=== PATIENT | female | born 1995 | race Hispanic/Latino ===

== ENCOUNTER 2024-04-12 14:27 | Observation (INO) | payer OTHER ==
[2024-04-12] MEDS ORDERED: ONDANSETRON 4 MG/2 ML VIAL ONE (15:28)
[2024-04-12] MEDS ORDERED: FAMOTIDINE 20 MG/2 ML VIAL IV ONE (15:28)
[2024-04-12] MEDS ORDERED: NA CHLORIDE 0.9% 1,000 ML ONE (15:29)
[2024-04-12 15:32] LABS: Absolute Eosinophils 0.1 K/uL (0-0.5); Absolute Lymphocytes (CBC) 1.4 K/uL (0.7-4.9); Absolute Monocytes 0.4 K/uL (0.1-1.3); Basophils % 0.5 % (0-1.3); Eosinophils % 1.8 % (0-4.4); Hematocrit 31.6 % (36.0-45.0); Hemoglobin 10.8 g/dL (12.0-15.0); Lymphocytes % 23.9 % (15.3-44.8); MCH 34.1 pg (27.0-35.0); MCHC 34.3 g/dL (32.0-36.0); MCV 99.5 fL (80-100); MPV 6.4 fL (7.6-11.3); Monocytes % 6.9 % (3.3-12.3); Neutrophils % 66.9 % (41.7-73.7); Nucleated Red Blood Cells % 0.1 % (0-0); Platelets 444 thou/uL (152-406); RBC Red Blood Cell Count 3.18 M/uL (3.86-4.86); Red Cell Distribution Width 16.7 % (12.1-15.2)
--- NOTE | 2024-04-12 15:44 | RAD REPORT ---
EXAM: Right upper quadrant ultrasound. CLINICAL HISTORY: Abdominal pain COMPARISON: None FINDINGS: A gallstone is not seen. Gallbladder wall 3.5 mm. [id number] amount of sludge Biliary tree normal caliber IMPRESSION: Mild gallbladder wall thickening may indicate acalculous cholecystitis or be secondary to hypoalbumin emia. Small to moderate amount of sludge within the gallbladder
[2024-04-12 15:46] LABS: Albumin 3.2 g/dL (3.4-5.0); Albumin/Globulin Ratio 0.8 (1.1-1.8); Anion Gap 8.6 mEq/L (5.0-15.0); Bilirubin Total 0.5 mg/dL (0.2-1.0); Globulin 3.9 g/dL (2.3-3.5); Potassium 3.6 mEq/L (3.5-5.1); Protein, Total 7.1 g/dL (6.4-8.2)
--- NOTE | 2024-04-12 16:51 | EDPHYS ---
Physician Documentation [facility] Name: Jesica Olivas Age: 28 yrs Sex: Female : 1995 Arrival Date: 04/12/2024 Time: 14:27 Bed 18 Private MD: ED Physician Efren Thomas HPI: 04/12 16:39 This 28 yrs old Female presents to ER via Ambulatory with complaints of zelalem Abdominal Pain. 16:39 The patient presents with abdominal pain in the epigastric area, in the upper abdomen. zelalem Onset: The symptoms/episode began/occurred 2 day(s) ago. The symptoms do not radiate. Associated signs and symptoms: none. Modifying factors: The symptoms are alleviated by food. Severity of pain: At its worst the pain was mild moderate in the emergency department the pain is unchanged. The patient has not experienced similar symptoms in the past. Historical: - Allergies: 14:47 No Known Allergies; os - Home Meds: 14:47 prednisone 5 mg Oral tablet 5 tabs once [Active]; Iron CR Oral [Active]; os - PMHx: 14:47 Anemia; os - Immunization history:: Adult Immunizations up to date. - Infectious Disease History:: Denies. - Social history:: Smoking status: Patient denies any tobacco usage or history of. - Family history:: not pertinent. ROS: 16:39 Constitutional: Negative for fever, chills, and weight loss, Eyes: Negative for injury, zelalem pain, redness, and discharge, ENT: Negative for injury, pain, and discharge, Neck: Negative for injury, pain, and swelling, Cardiovascular: Negative for chest pain, palpitations, and edema, Respiratory: Negative for shortness of breath, cough, wheezing, and pleuritic chest pain, Back: Negative for injury and pain, : Negative for injury, bleeding, discharge, and swelling, MS/Extremity: Negative for injury and deformity, Skin: Negative for injury, rash, and discoloration, Neuro: Negative for headache, weakness, numbness, tingling, and seizure, Psych: Negative for depression, anxiety, suicide ideation, homicidal ideation, and hallucinations, Allergy/Immunology: Negative for hives, rash, and allergies, Endocrine: Negative for neck swelling, polydipsia, polyuria, polyphagia, and marked weight changes, Hematologic/Lymphatic: Negative for swollen nodes, abnormal bleeding, and unusual bruising, 16:39 Abdomen/GI: Positive for abdominal pain, nausea and vomiting, of the epigastric area and right upper quadrant, Exam: 16:39 Constitutional: This is a well developed, well nourished patient who is awake, alert, zelalem and in no acute distress. Head/Face: Normocephalic, atraumatic. Eyes: Pupils equal round and reactive to light, extra-ocular motions intact. Lids and lashes normal. Conjunctiva and sclera are non-icteric and not injected. Cornea within normal limits. Periorbital areas with no swelling, redness, or edema. ENT: Nares patent. No nasal discharge, no septal abnormalities noted. Tympanic membranes are normal and external auditory canals are clear. Oropharynx with no redness, swelling, or masses, exudates, or evidence of obstruction, uvula midline. Mucous membranes moist. Neck: Trachea midline, no thyromegaly or masses palpated, and no cervical lymphadenopathy. Supple, full range of motion without nuchal rigidity, or vertebral point tenderness. No Meningismus. Chest/axilla: Normal chest wall appearance and motion. Nontender with no deformity. No lesions are appreciated. Cardiovascular: Regular rate and rhythm with a normal S1 and S2. No gallops, murmurs, or rubs. Normal PMI, no JVD. No pulse deficits. Respiratory: Lungs have equal breath sounds bilaterally, clear to auscultation and percussion. No rales, rhonchi or wheezes noted. No increased work of breathing, no retractions or nasal flaring. Back: No spinal tenderness. No costovertebral tenderness. Full range of motion. Skin: Warm, dry with normal turgor. Normal color with no rashes, no lesions, and no evidence of cellulitis. MS/ Extremity: Pulses equal, no cyanosis. Neurovascular intact. Full, normal range of motion. Neuro: Awake and alert, GCS 15, oriented to person, place, time, and situation. Cranial nerves II-XII grossly intact. Motor strength 5/5 in all extremities. Sensory grossly intact. Cerebellar exam normal. Normal gait. 16:39 Abdomen/GI: Inspection: distension, that is mild, Bowel sounds: normal, Palpation: mild abdominal tenderness, moderate abdominal tenderness, in the epigastric area and right upper quadrant, Liver: no appreciated palpable abnormalities, Hernia: not appreciated, Vital Signs: 14:45 BP 116 / 67; Pulse 82; Resp 20; Temp 98; Pulse Ox 100% ; Weight 86.18 kg; os 16:29 BP 108 / 63; Pulse 66; Resp 16; Pulse Ox 99% on R/A; hb 17:57 BP 112 / 64; Pulse 64; Resp 16; Pulse Ox 100% on R/A; ss MDM: 14:30 Medical Screening Exam initiated [facility] 16:43 Differential diagnosis: cholecystitis, Cholelithiasis, gastritis, Hepatitis, zelalem non-specific abd pain, pancreatitis, Peptic Ulcer Disease, Peritonitis, Pyelonephritis, Ureterolithiasis, urinary tract infection. Data reviewed: vital signs, nurses notes, lab test result(s), radiologic studies, plain films. Consideration of Admission/Observation Patient was admitted/placed on observation. Escalation of care including admission/observation considered. I considered the following discharge prescriptions or medication management in the emergency department Medications were administered in the Emergency Department. See MAR. Independent interpretation of the following test(s) in the Emergency Department Radiology Department Ultrasound: My interpretation is gb, thick wall. Test considered but Not performed: CT: no ct abd pel. 04/12 14:33 Order name: CBC with Diff; Complete Time: 16:37 [facility] 04/12 14:33 Order name: CMP; Complete Time: 16:37 [facility] 04/12 14:33 Order name: Lipase; Complete Time: 16:37 [facility] 04/12 14:33 Order name: Test, Urine [facility] 04/12 14:33 Order name: Urinalysis w/ reflexes [facility] 04/12 15:07 Order name: US Abdomen Limited; Complete Time: 16:37 [facility] 04/12 14:33 Order name: IV Saline Lock; Complete Time: 15:23 [facility] 04/12 14:33 Order name: Labs collected and sent; Complete Time: 15:23 [facility] Administered Medications: 15:49 Drug: NS 0.9% IV 1000 ml IV at 1 bolus Per protocol; to be given as a bolus over 60 hb minutes Route: IV; Rate: 1 bolus; Site: right antecubital; 16:32 Follow up: Response: No adverse reaction; IV Status: Completed infusion; IV Intake: hb 1000ml 15:50 Drug: Famotidine IVP 20 mg IVP once; dilute with 10 mL 0.9% NaCl; give over 2 minutes hb Route: IVP; Site: right antecubital; 16:30 Follow up: Response: No adverse reaction hb 15:50 Drug: Ondansetron IVP 4 mg IVP once; over 2 minutes Route: IVP; Site: right antecubital;hb 16:15 Follow up: Response: No adverse reaction hb 17:57 Drug: Piperacillin-Tazobactam IVPB 3.375 grams IVPB once over 60 mins; (mix in NS 100 ss mL) Route: IVPB; Infused Over: 60 mins; Site: right antecubital; 18:43 Follow up: IV Status: Infusion continued upon admission hb Disposition Summary: 04/12/24 16:50 Hospitalization Ordered Notes: Hospitalization Status: Inpatient Admission zelalem Provider: Lavelle Martínez cha Location: Telemetry/MedSurg (Inpatient) zelalem Condition: Fair zelalem Problem: new zelalem Symptoms: have improved zelalem Bed/Room Type: Standard [facility] Room Assignment: 223(04/12/24 17:49) eb Diagnosis - Epigastric abdominal tenderness zelalem - Cholecystitis, unspecified zelalem Forms: - Medication Reconciliation Form zelalem - SBAR form zelalem - Leadership Thank You Letter zelalem Signatures: Dispatcher [employer] EDEfren Musa MD MD cha Blanchard, Shelby, MONALISA SHELDON Bridgette Garcia RN RN Susy Garcia Orest, RN RN os Corrections: (The following items were deleted from the chart) 15:07 15:07 Abdomen Limited+US.RAD.BRZ ordered. EDMS EDMS 16:48 16:47 Abdomen Pelvis W Con+CT.RAD.BRZ ordered. EDMS EDMS 17:49 16:50 zelalem eb
--- NOTE | 2024-04-12 16:51 | ER ---
Nurse's Notes [facility] Name: Jesica Olivas Age: 28 yrs Sex: Female : 1995 Arrival Date: 04/12/2024 Time: 14:27 Bed 18 Private MD: Diagnosis: Epigastric abdominal tenderness;Cholecystitis, unspecified Presentation: 04/12 14:45 Chief complaint:. Chief complaint: Patient states: Patient presents in the ED c/o upper os abdominal pain for the past 2 days. Patient states she had a Mar 08, and a blood transfusion on Mar 29. Coronavirus screen: Vaccine status: Patient reports being unvaccinated. Client denies travel out of the [place] in the last 14 days. Ebola Screen: No symptoms or risks identified at this time. Initial Sepsis Screen: Does the patient meet any 2 criteria? No. Patient's initial sepsis screen is negative. Does the patient have a suspected source of infection? No. Patient's initial sepsis screen is negative. Risk Assessment: Do you want to hurt yourself or someone else? Patient reports no desire to harm self or others. Onset of symptoms was April 10, 2024. 14:45 Method Of Arrival: Ambulatory os 14:45 Acuity: ADIA 3 os Historical: - Allergies: 14:47 No Known Allergies; os - Home Meds: 14:47 prednisone 5 mg Oral tablet 5 tabs once [Active]; Iron CR Oral [Active]; os - PMHx: 14:47 Anemia; os - Immunization history:: Adult Immunizations up to date. - Infectious Disease History:: Denies. - Social history:: Smoking status: Patient denies any tobacco usage or history of. - Family history:: not pertinent. Screenin:00 [facility] ED Fall Risk Assessment (Adult) History of falling in the last 3 months, hb including since admission No falls in past 3 months (0 pts) Confusion or Disorientation No (0 pts) Intoxicated or Sedated No (0 pts) Impaired Gait No (0 pts) Mobility Assist Device Used No (0 pt) Altered Elimination No (0 pt) Score/Fall Risk Level 0 - 2 = Low Risk Oriented to surroundings, Maintained a safe environment, Educated pt \T\ family on fall prevention, incl call for assistance when getting out of bed. Abuse screen: Denies threats or abuse. Denies injuries from another. Nutritional screening: No deficits noted. Tuberculosis screening: No symptoms or risk factors identified. Assessment: 15:00 General: Appears in no apparent distress. uncomfortable, Behavior is calm, cooperative. hb Pain: Pain currently is 5 out of 10 on a pain scale. Neuro: Level of Consciousness is awake, alert, obeys commands, Oriented to person, place, time, situation. Cardiovascular: Patient's skin is warm and dry. Respiratory: Respiratory effort is even, unlabored, Respiratory pattern is regular, symmetrical. GI: Reports upper abdominal pain, nausea. : No signs and/or symptoms were reported regarding the genitourinary system. EENT: No signs and/or symptoms were reported regarding the EENT system. Derm: Skin is pink, warm \T\ dry. Musculoskeletal: No signs and/or symptoms reported regarding the musculoskeletal system. 16:15 Reassessment: Patient appears in no apparent distress at this time. Patient and/or hb family updated on plan of care and expected duration. Pain level reassessed. Patient is alert, oriented x 3, equal unlabored respirations, skin warm/dry/pink. 17:57 Reassessment: Patient appears in no apparent distress at this time. Patient and/or ss family updated on plan of care and expected duration. Pain level reassessed. Patient is alert, oriented x 3, equal unlabored respirations, skin warm/dry/pink. 18:25 Reassessment: Patient appears in no apparent distress at this time. Patient and/or hb family updated on plan of care and expected duration. Pain level reassessed. Patient is alert, oriented x 3, equal unlabored respirations, skin warm/dry/pink. Vital Signs: 14:45 BP 116 / 67; Pulse 82; Resp 20; Temp 98; Pulse Ox 100% ; Weight 86.18 kg; os 16:29 BP 108 / 63; Pulse 66; Resp 16; Pulse Ox 99% on R/A; hb 17:57 BP 112 / 64; Pulse 64; Resp 16; Pulse Ox 100% on R/A; ss ED Course: 14:28 Patient arrived in ED. mg5 14:30 Efren Thomas MD is Attending Physician. zelalem 14:47 Triage completed. os 15:00 Patient has correct armband on for positive identification. Bed in low position. Call hb light in reach. Provided Education on: tests, result times . 15:12 Bridgette Garcia, RN is Primary Nurse. hb 15:15 No provider procedures requiring assistance completed. Inserted saline lock: 20 gauge hb in right antecubital area, using aseptic technique. Blood collected. Flushed with 10 mL NS. 15:23 CBC with Diff Sent. hb 15:23 CMP Sent. hb 15:23 Lipase Sent. hb 15:30 Arm band placed on. hb 15:41 US Abdomen Limited In Process Unspecified. EDAR 16:49 Lavelle Martínez MD is Hospitalizing Provider. zelalem 18:43 Patient admitted, IV remains in place. hb Administered Medications: 15:49 Drug: NS 0.9% IV 1000 ml IV at 1 bolus Per protocol; to be given as a bolus over 60 hb minutes Route: IV; Rate: 1 bolus; Site: right antecubital; 16:32 Follow up: Response: No adverse reaction; IV Status: Completed infusion; IV Intake: hb 1000ml 15:50 Drug: Famotidine IVP 20 mg IVP once; dilute with 10 mL 0.9% NaCl; give over 2 minutes hb Route: IVP; Site: right antecubital; 16:30 Follow up: Response: No adverse reaction hb 15:50 Drug: Ondansetron IVP 4 mg IVP once; over 2 minutes Route: IVP; Site: right antecubital;hb 16:15 Follow up: Response: No adverse reaction hb 17:57 Drug: Piperacillin-Tazobactam IVPB 3.375 grams IVPB once over 60 mins; (mix in NS 100 ss mL) Route: IVPB; Infused Over: 60 mins; Site: right antecubital; 18:43 Follow up: IV Status: Infusion continued upon admission hb Medication: 15:00 VIS not applicable for this client. hb Intake: 16:32 IV: 1000ml; Total: 1000ml. hb Outcome: 16:50 Decision to Hospitalize by Provider. zelalem 18:43 Patient left the ED. hb 18:43 Admitted to Med/surg hb 18:43 Condition: stable 18:43 Instructed on the need for admit, Demonstrated understanding of instructions, Signatures: Dispatcher [facility] Efren Thomas MD MD cha Blanchard, Shelby, RN RN Bridgette Garcia RN RN hb Sotiri, Orest, RN RN os Gardner, Magali mg5 Corrections: (The following items were deleted from the chart) 14:51 14:45 Chief complaint: Patient states: Patient presents in the ED c/o upper abdominal os pain for the past 2 days. os
--- NOTE | 2024-04-12 17:44 | P.HP ---
Certification for Inpatient Patient admitted to: Observation With expected LOS: <2 Midnights Patient will require the following post-hospital care: None Practitioner: I am a practitioner with admitting privileges, knowledge of patient current condition, hospital course, and medical plan of care. Services: Services provided to patient in accordance with Admission requirements found in Title 42 Section 412.3 of the Code of Federal Regulations Patient History Date of Service: 04/12/24 Reason for admission: Abdominal tenderness History of Present Illness: 28-year-old female with history of iron deficiency anemia, gastritis presents to the emergency department with chief complaint of right upper quadrant abdominal pain. She had a about 1 month ago, has been having this upper abdominal pain the last few days. She was evaluated in the emergency department her labs were significant for an elevated alk phos 148 hemoglobin 10.8 hematocrit 31.6 abdominal ultrasound shows mild gallbladder wall thickening may indicate a calculus cholecystitis or be secondary to hypoalbuminemia small dislodged within the gallbladder. ED physician discussed case with general surgery who will see patient in the hospital, patient will be admitted under observation for evaluation of abdominal tenderness, possible acute cholecystitis - Past Medical/Surgical History -: Iron deficiency anemia -: Gastritis -: Low platelet count during -: x 4 Psychosocial/ Personal History: Patient lives at home with her and children - Social History Alcohol use: No CD- Drugs: No Caffeine use: Yes Place of Residence: Home Review of Systems 10-point ROS is otherwise unremarkable Gastrointestinal: Abdominal Pain Physical Examination - Physical Exam General: Alert, In no apparent distress, Oriented x3 HEENT: Atraumatic, PERRLA, Mucous membr. moist/pink, EOMI, Sclerae nonicteric Neck: Supple, 2+ carotid pulse no bruit, No LAD, Without JVD or thyroid abnormality Respiratory: Clear to auscultation bilaterally, Normal air movement Cardiovascular: Regular rate/rhythm, Normal S1 S2 Gastrointestinal: Normal bowel sounds, Tenderness (Mild epigastric/right upper quadrant tenderness) Musculoskeletal: No tenderness Integumentary: No rashes Neurological: Normal gait, Normal speech, Normal strength at 5/5 x4 extr, Normal tone, Normal affect Lymphatics: No axilla or inguinal lymphadenopathy - Studies Laboratory Data (last 24 hrs) 04/12/24 04/12/24 15:22 15:22 WBC 5.90 Hgb 10.8 L Hct 31.6 L Plt Count 444 H Sodium 140 Potassium 3.6 BUN 11 Creatinine 0.72 Glucose 104 Total Bilirubin 0.5 AST 12 L ALT 24 Alkaline Phosphatase 148 H Lipase 37 Assessment and Plan - Plan Assessment: Abdominal tenderness rule out acute cholecystitis Iron deficiency anemia History of gastritis Low platelet count during Plan: Abdominal tenderness rule out acute cholecystitis Clear liquids until midnight N.p.o. after midnight General Surgery consult Continue antibiotics/Zosyn, as needed pain medications and antiemetics Iron deficiency anemia History of gastritis Low platelet count during Hold oral home medications until surgery has evaluated DVT PPX: Ambulation 4 times daily Code status: Full Discharge Plan: Home Plan to discharge in: 24 Hours - Advance Directives Does patient have a Living Will: No Does patient have a Durable POA for Healthcare: No - Code Status/Comfort Care Code Status Assessed: Yes (Full code) Critical Care: No Time Spent Managing Pts Care (In Minutes): 51
[2024-04-12] MEDS ORDERED: NA CHLORIDE 0.9% 100 ML ONE (17:55)
[2024-04-12] MEDS ORDERED: PIPERACIL/TAZO 3.375 GM VIAL IV ONE (17:55)
[2024-04-12 19:56] VITALS: BMI 34.7
[2024-04-12 20:10] VITALS: O2SAT 100
[2024-04-12] MEDS ORDERED: ACETAMINOPHEN 325 MG TABLET PO PRN (20:18)
[2024-04-12] MEDS ORDERED: MORPHINE 2 MG/ML SYR IV PRN (20:18)
[2024-04-12] MEDS ORDERED: ONDANSETRON 4 MG/2 ML VIAL IV PRN (21:30)
[2024-04-12 21:55] LABS: Specific Gravity 1.022 (1.005-1.030)
[2024-04-12 21:56] LABS: Specific Gravity 1.022 (1.005-1.030); Urine Bacteria <20 /HPF (<20); Urine Bilirubin NEGATIVE (Negative); Urine Blood 1+ (Negative); Urine Clarity Extremely Turbid (Clear); Urine Color Light-Yellow (Yellow); Urine Culture Reflex Order REFLEXED; Urine Glucose NEGATIVE (Negative); Urine Ketones 1+ (Negative); Urine Microscopic Reflex YN ORDER UMIC; Urine Mucus Slight /HPF (None Seen); Urine Nitrite NEGATIVE (Negative); Urine Protein NEGATIVE (Negative); Urine Urobilinogen Normal (Normal); Urine WBC 20-50 /HPF (<5); Urine WBC Clump Occasional /HPF (None Seen); Urine Yeast (Budding) Trace /HPF (None Seen)
[2024-04-12] MEDS: NA CHLORIDE 0.9% 1,000 ML IV SCH (22:07)
[2024-04-12] MEDS: POTASSIUM CL SA 10 MEQ TAB PO ONE (22:07)
[2024-04-13] MEDS: PIPER TAZO 3.375 GM in NA CHLORIDE 0.9% 100 ML IV SCH (00:38)
--- NOTE | 2024-04-13 02:19 | RAD REPORT ---
EXAM DESCRIPTION: Abdomen Pelvis W Contrast CLINICAL HISTORY: ABD PAIN COMPARISON: 03/29/2024 TECHNIQUE: CT of the abdomen and pelvis performed following IV administration of iodinated contrast . This exam was performed according to our departmental dose-optimization program, which includes automated exposure control, adjustment of the mA and/or kV according to patient size and/or use of it erative reconstruction technique. FINDINGS: Lung Bases: The visualized lung bases are clear. Bones: No acute osseous abnormality identified. Abdomen: Liver: Hepatomegaly with decreased density. Gallbladder: Wall thickening of the gallbladder with adjacent inflammatory change. No calcified galls tones identified. Spleen, Pancreas, and Adrenal Glands: Splenomegaly. The pancreas and adrenal glands are unremarkabl e. Kidneys: No hydronephrosis or obstructing calculus. Nonobstructing left nephrolithiasis. Vasculature: The aorta and IVC have normal caliber and position. The portal vein is patent. The pro ximal visceral and renal arteries are patent. Stomach: The stomach and duodenum have normal course. Other: No free intraperitoneal air. Small amount of free fluid. Pelvis: Bladder: Wall thickening of the urinary bladder. Bowel: No dilated loops of large or small bowel. Appendix: Normal appendix. Pelvis: Uterus is not enlarged. IMPRESSION: 1. Wall thickening of the gallbladder with adjacent inflammatory change. No calcified gallstones id entified. These findings could be seen with acute cholecystitis. 2. Wall thickening of the urinary bladder. This could be seen with cystitis. 3. Nonobstructing left nephrolithiasis. 4. Hepatomegaly and hepatic steatosis. 5. Splenomegaly. Electronically signed by: Denis Carvalho DO 04/13/2024 02:15 AM [facility] [id number] Due to temporary technical issues with the PACS/DoubleRecall reporting system, reports are being daron d by the in-house radiologist without review as a courtesy to ensure prompt reporting the interpreting radiologist is fully responsible for the content of the report. Transcribed Date/Time: 04/13/2024 2:19 AM
[2024-04-13 07:27] LABS: Absolute Eosinophils 0.1 K/uL (0-0.5); Absolute Lymphocytes (CBC) 1.7 K/uL (0.7-4.9); Absolute Monocytes 0.4 K/uL (0.1-1.3); Absolute Neutrophil 1.7 K/uL (1.8-8.0); Basophils % 0.3 % (0-1.3); Eosinophils % 2.4 % (0-4.4); Hematocrit 28.9 % (36.0-45.0); Hemoglobin 9.7 g/dL (12.0-15.0); Lymphocytes % 44.7 % (15.3-44.8); MCH 34.1 pg (27.0-35.0); MCHC 33.5 g/dL (32.0-36.0); MCV 101.9 fL (80-100); MPV 7.2 fL (7.6-11.3); Monocytes % 9.3 % (3.3-12.3); Neutrophils % 43.3 % (41.7-73.7); Platelets 377 thou/uL (152-406); RBC Red Blood Cell Count 2.84 M/uL (3.86-4.86); Red Cell Distribution Width 17.1 % (12.1-15.2)
[2024-04-13 07:44] LABS: Albumin 2.9 g/dL (3.4-5.0); Albumin/Globulin Ratio 0.8 (1.1-1.8); Anion Gap 7.7 mEq/L (5.0-15.0); Bilirubin Total 0.6 mg/dL (0.2-1.0); Globulin 3.6 g/dL (2.3-3.5); Potassium 3.7 mEq/L (3.5-5.1); Protein, Total 6.5 g/dL (6.4-8.2)
[2024-04-13 08:52] VITALS: BP 103/55; TEMP 97.8
--- NOTE | 2024-04-13 14:40 | P.DS ---
Admission Date: 04/12/24 Discharge Date: 04/13/24 Disposition: ROUTINE DISCHARGE Discharge Condition: GOOD Reason for Admission: Abdominal tenderness Brief History of Present Illness: 28-year-old female with history of iron deficiency anemia, gastritis presents to the emergency department with chief complaint of right upper quadrant abdominal pain. She had a about 1 month ago, has been having this upper abdominal pain the last few days. She was evaluated in the emergency department her labs were significant for an elevated alk phos 148 hemoglobin 10.8 hematocrit 31.6 abdominal ultrasound shows mild gallbladder wall thickening may indicate a calculus cholecystitis or be secondary to hypoalbuminemia small dislodged within the gallbladder. ED physician discussed case with general surgery who will see patient in the hospital, patient will be admitted under observation for evaluation of abdominal tenderness, possible acute cholecystitis Hospital Course: Assessment: Abdominal tenderness rule out acute cholecystitis Iron deficiency anemia History of gastritis Low platelet count during Patient was admitted to the hospital for abdominal tenderness, suspected cholecystitis. She is around 1 month admit having right upper quadrant pain and tenderness. Abdominal ultrasound showed mild gallbladder wall thickening which may indicate a calculus cholecystitis or be secondary to hypoalbuminemia, small to moderate amount of sludge within the gallbladder. Follow-up CT of the abdomen pelvis was performed showed wall thickening of the gallbladder with adjacent inflammatory change. No calcified gallstones identified. These findings could be seen with a acute cholecystitis. White blood cell count 5.9 on admission, 3.9 repeat today LFTs within normal limits. Patient was seen by general surgery who recommended cholecystectomy, patient states that she would rather go home and see how she does with oral antibiotics rather than surgery. It was explained to her that acute cholecystitis can lead to life-threatening infections and that surgery is the preferred treatment. She understands this and still chooses to go home on oral antibiotics at this time. Patient is breast-feeding, will prescribe Augmentin 875 mg per mouth twice daily for 10 days Strict return precautions given Please follow-up with Dr. Oliveira Surgery Vital Signs/Physical Exam: Temp Pulse Resp BP Pulse Ox 97.8 F 72 16 103/55 L 98 04/13/24 12:00 04/13/24 12:00 04/13/24 12:00 04/13/24 12:00 04/13/24 12:00 General: Alert, In no apparent distress, Oriented x3 HEENT: Atraumatic, PERRLA, EOMI Neck: Supple, JVD not distended Respiratory: Clear to auscultation bilaterally, Normal air movement Cardiovascular: Regular rate/rhythm, Normal S1 S2 Gastrointestinal: Normal bowel sounds, Tenderness (Mild RUQ tenderness) Musculoskeletal: No tenderness Integumentary: No rashes Neurological: Normal speech, Normal affect Laboratory Data at Discharge: WBC 3.90 thou/uL (4.3-10.9) L 04/13/24 06:43 Hgb 9.7 g/dL (12.0-15.0) L D 04/13/24 06:43 Hct 28.9 % (36.0-45.0) L 04/13/24 06:43 Plt Count 377 thou/uL (152-406) 04/13/24 06:43 Sodium 140 mEq/L (136-145) 04/13/24 06:43 Potassium 3.7 mEq/L (3.5-5.1) 04/13/24 06:43 BUN 7 mg/dL (7-18) 04/13/24 06:43 Creatinine 0.68 mg/dL (0.55-1.02) 04/13/24 06:43 Glucose 94 mg/dL (74-106) 04/13/24 06:43 Total Bilirubin 0.6 mg/dL (0.2-1.0) 04/13/24 06:43 AST 11 U/L (15-37) L 04/13/24 06:43 ALT 20 U/L (13-56) 04/13/24 06:43 Alkaline Phosphatase 140 U/L (45-117) H 04/13/24 06:43 Lipase 37 U/L (13-75) 04/12/24 15:22 Home Medications: Famotidine 20 mg PO BID 04/12/24 Ferrous Sulfate 325 mg PO DAILY 04/12/24 Sucralfate [Carafate] 1 g PO TID* 04/12/24 predniSONE [Prednisone] 50 mg PO DAILY 04/12/24 Amox/Clavulanate [Augmentin 875-125 Tab] 875 mg PO BID 10 Days #20 tab 04/13/24 New Medications: Amox/Clavulanate [Augmentin 875-125 Tab] 875 mg PO BID 10 Days #20 tab Physician Discharge Instructions: Patient was admitted to the hospital for abdominal tenderness, suspected cholecystitis. She is around 1 month admit having right upper quadrant pain and tenderness. Abdominal ultrasound showed mild gallbladder wall thickening which may indicate a calculus cholecystitis or be secondary to hypoalbuminemia, small to moderate amount of sludge within the gallbladder. Follow-up CT of the abdomen pelvis was performed showed wall thickening of the gallbladder with adjacent inflammatory change. No calcified gallstones identified. These findings could be seen with a acute cholecystitis. White blood cell count 5.9 on admission, 3.9 repeat today LFTs within normal limits. Patient was seen by general surgery who recommended cholecystectomy, patient states that she would rather go home and see how she does with oral antibiotics rather than surgery. It was explained to her that acute cholecystitis can lead to life-threatening infections and that surgery is the preferred treatment. She understands this and still chooses to go home on oral antibiotics at this time. Patient is breast-feeding, will prescribe Augmentin 875 mg per mouth twice daily for 10 days Strict return precautions given Please follow-up with Dr. FreemanGeneral Surgery Diet: Full liqui Activity: Ad phillip Followup: Duke Freeman MD [ACTIVE - CAN ADMIT] - 2-3 Days NONE,NONE [Primary Care Provider] - 2-3 Days Time spent managing pt's care (in minutes): 36
== END 2024-04-13 13:28 | disposition home or self-care (01) ==
LOC: ER 14:27 → ERHOLD 17:36 → 2ND 18:09
PROVIDERS: ADMIT Hospitalist; ATTEND Hospitalist
DX: K81.9 Cholecystitis, unspecified (principal); D50.9 Iron deficiency anemia, unspecified; K29.70 Gastritis, unspecified, without bleeding; Z98.890 Other specified postprocedural states
CPT/HCPCS: 96365; 96361; 87088; 85025 ×2; 81001; 87086; 36415; 81025; 83690; 80053 ×2; 74177; 76705; 96375; 99285; Q9967; J2543 ×3; J2405; J7030 ×3; G0378